=== PATIENT | male | born 1990 | race African-American/Black ===

== ENCOUNTER 2017-09-04 04:57 | Emergency (ER) | payer SELFPAY ==
[~2017-09-04] VITALS: Ht 182.9 cm; Wt 87.7 kg
[2017-09-04 05:01] VITALS: BP 127/71; TEMP 98.7
[2017-09-04] MEDS ORDERED: DOXYCYCLINE 10100 MG PO (05:21)
[2017-09-04 05:41] VITALS: PULSE 75
== END 2017-09-04 05:42 | disposition home or self-care (01) ==
LOC: COL.ER 04:57
DX: N45.1 Epididymitis (principal)

== ENCOUNTER 2017-09-27 08:43 | Emergency (ER) | payer SELFPAY ==
[~2017-09-27] VITALS: Ht 185.4 cm; Wt 87.3 kg
[~2017-09-27 08:43] MED LIST: DOXYCYCLINE 10100 MG PO
[2017-09-27 08:44] VITALS: BP 120/74; PULSE 58; TEMP 98.2
[2017-09-27] MEDS ORDERED: NORCO 325 MG-51 TAB PO (08:47)
== END 2017-09-27 10:16 | disposition home or self-care (01) ==
LOC: COL.ER 08:43
DX: M25.511 Pain in right shoulder (principal); X50.1XXA Overexertion from prolonged static or awkward postures, initial encounter; Y92.009 Unspecified place in unspecified non-institutional (private) residence as the place of occurrence of the external cause

== ENCOUNTER 2017-12-20 09:46 | Emergency (ER) | payer SELFPAY ==
[~2017-12-20] VITALS: Ht 182.9 cm; Wt 85.5 kg
[~2017-12-20 09:46] MED LIST changes: +NORCO 325 MG-51 TAB PO
[2017-12-20 09:56] VITALS: BP 121/72; TEMP 98.6
[2017-12-20 11:02] LABS: BASO % 0.6 % (0.0-2.0); EOS # 0.2 (0.0-0.7); EOS % 4.4 % (0-4.0); GRAN # 1.9 (1.4-6.5); GRAN % 39.9 % (42.2-75.2); HEMATOCRIT 39.8 % (42.0-52.0); HEMOGLOBIN 13.2 g/dl (13.5-18.0); LYMPH # 2.1 (1.2-3.4); MEAN CELL VOLUME 81 fl (80.0-100.0); MEAN CORPUSCULAR HEMOGLOBIN 27 pg (27.0-31.0); MEAN CORPUSCULAR HGB CONC 33 g/dl (33.0-37.0); MEAN PLATELET VOLUME 9.7 fl (7.4-10.4); MONO # 0.6 (0.1-0.6); MONO % 11.9 % (1.7-9.3); PLATELET COUNT 215 K/mm3 (130-400); RED BLOOD COUNT 4.91 M/mm3 (4.20-5.60); REDCELL DISTRIBUTION WIDTH-CV 12.4 % (11.5-14.5)
[2017-12-20 11:12] LABS: ALBUMIN 3.6 gm/dL (3.5-5.0); BILIRUBIN,TOTAL 0.2 mg/dL (0.0-1.0); CALCIUM 8.6 mg/dL (8.4-10.2); POTASSIUM 3.9 mmol/L (3.4-5.0); TOTAL PROTEIN 6.8 gm/dL (6.4-8.2)
[2017-12-20 11:42] LABS: THYROID STIMULATING HORMONE 0.661 uIU/mL (0.465-4.680)
[2017-12-20 12:20] VITALS: PULSE 58
== END 2017-12-20 12:21 | disposition home or self-care (01) ==
LOC: COL.ER 09:46
PROVIDERS: Nurse Practitioner
DX: R55 Syncope and collapse (principal); Z98.890 Other specified postprocedural states

== ENCOUNTER 2017-12-26 05:54 | Emergency (ER) | payer SELFPAY ==
[~2017-12-26] VITALS: Ht 185.4 cm; Wt 84.5 kg
[2017-12-26 05:58] VITALS: TEMP 98.1
[2017-12-26 06:49] LABS: COLLECTION METHOD CLEAN CATCH
[2017-12-26 06:57] LABS: MUCOUS Present /lpf; PH 5 (5-8); SQUAMOUS EPITHELIAL 0-2 /hpf; URINE APPEARANCE Clear; URINE BACTERIA None Seen /hpf; URINE BILIRUBIN Negative (NEGATIVE); URINE BLOOD Negative (NEGATIVE); URINE COLOR Amber; URINE GLUCOSE Negative (NEGATIVE); URINE KETONE Trace (NEGATIVE); URINE LEUKOCYTE ESTERASE Negative (NEGATIVE); URINE NITRATE Negative (NEGATIVE); URINE PROTEIN(semi-quant) Negative (NEGATIVE); URINE RBC 0-2 /hpf
[2017-12-26 07:01] LABS: BASO % 0.4 % (0.0-2.0); EOS # 0.2 (0.0-0.7); EOS % 3.8 % (0-4.0); GRAN # 1.9 (1.4-6.5); GRAN % 40.6 % (42.2-75.2); HEMATOCRIT 47.5 % (42.0-52.0); HEMOGLOBIN 15.7 g/dl (13.5-18.0); LYMPH # 2.2 (1.2-3.4); LYMPH % 46.6 % (20.0-51.0); MEAN CELL VOLUME 82 fl (80.0-100.0); MEAN CORPUSCULAR HEMOGLOBIN 27 pg (27.0-31.0); MEAN CORPUSCULAR HGB CONC 33 g/dl (33.0-37.0); MEAN PLATELET VOLUME 9.4 fl (7.4-10.4); MONO # 0.4 (0.1-0.6); MONO % 8.4 % (1.7-9.3); PLATELET COUNT 256 K/mm3 (130-400); RED BLOOD COUNT 5.81 M/mm3 (4.20-5.60); REDCELL DISTRIBUTION WIDTH-CV 12.5 % (11.5-14.5)
[2017-12-26 07:13] LABS: ALBUMIN 4.2 gm/dL (3.5-5.0); CALCIUM 9.3 mg/dL (8.4-10.2); CREATININE, serum 1.04 mg/dL (0.66-1.25); POTASSIUM 3.7 mmol/L (3.4-5.0)
[2017-12-26] MEDS ORDERED: CEPHALEXIN500 M1 PO (07:34)
[2017-12-26] MEDS ORDERED: ZOFRAN ODT8 MG PO (07:34)
[2017-12-26 08:03] VITALS: BP 126/70; PULSE 60
== END 2017-12-26 08:04 | disposition home or self-care (01) ==
LOC: COL.ER 05:54
PROVIDERS: Emergency Medicine
DX: R11.10 Vomiting, unspecified (principal); R19.7 Diarrhea, unspecified; R10.9 Unspecified abdominal pain
CPT/HCPCS: J2765; J3010; J7030

== ENCOUNTER 2018-03-08 07:06 | Emergency (ER) | payer SELFPAY ==
[~2018-03-08] VITALS: Ht 182.9 cm; Wt 81.8 kg
[~2018-03-08 07:06] MED LIST changes: +CEPHALEXIN500 M1 PO; +ZOFRAN ODT8 MG PO
[2018-03-08 07:10] VITALS: BP 132/84; TEMP 98.2
[2018-03-08 08:18] VITALS: PULSE 67
== END 2018-03-08 08:18 | disposition home or self-care (01) ==
LOC: COL.ER 07:06
DX: S66.912A Strain of unspecified muscle, fascia and tendon at wrist and hand level, left hand, initial encounter (principal); V49.9XXA Car occupant (driver) (passenger) injured in unspecified traffic accident, initial encounter

== ENCOUNTER 2018-03-14 10:19 | Emergency (ER) | payer SELFPAY ==
[~2018-03-14] VITALS: Ht 185.4 cm; Wt 81.8 kg
[2018-03-14 10:23] VITALS: BP 133/64; PULSE 75; TEMP 97.6
[2018-03-14] MEDS ORDERED: FLEXERIL 1010 MG/TAB PO (11:08)
== END 2018-03-14 11:21 | disposition home or self-care (01) ==
LOC: COL.ER 10:19
DX: S29.012A Strain of muscle and tendon of back wall of thorax, initial encounter (principal); X50.0XXA Overexertion from strenuous movement or load, initial encounter

== ENCOUNTER 2018-05-27 11:44 | Emergency (ER) | payer SELFPAY ==
[~2018-05-27] VITALS: Ht 185.4 cm; Wt 77.7 kg
[~2018-05-27 11:44] MED LIST changes: +FLEXERIL 1010 MG/TAB PO
[2018-05-27 12:00] VITALS: BP 132/91; TEMP 97.8
[2018-05-27 12:19] LABS: COLLECTION METHOD CLEAN CATCH
[2018-05-27 12:24] LABS: PH 6 (5-8); SQUAMOUS EPITHELIAL None Seen /hpf; URINE APPEARANCE Clear; URINE BACTERIA None Seen /hpf; URINE BILIRUBIN Negative (NEGATIVE); URINE BLOOD Negative (NEGATIVE); URINE COLOR Yellow; URINE GLUCOSE Negative (NEGATIVE); URINE KETONE Negative (NEGATIVE); URINE LEUKOCYTE ESTERASE Negative (NEGATIVE); URINE NITRATE Negative (NEGATIVE); URINE PROTEIN(semi-quant) Negative (NEGATIVE); URINE RBC 0-2 /hpf; URINE UROBILINOGEN Negative (NEGATIVE)
[2018-05-27] MEDS ORDERED: ZITHROMAX 250M250 MG PO (13:51)
[2018-05-27 14:18] VITALS: PULSE 70
== END 2018-05-27 14:20 | disposition home or self-care (01) ==
LOC: COL.ER 11:44
PROVIDERS: Emergency Medicine
DX: N34.2 Other urethritis (principal)
CPT/HCPCS: J0696

== ENCOUNTER 2018-05-31 14:51 | Emergency (ER) | payer SELFPAY ==
[~2018-05-31] VITALS: Ht 185.4 cm; Wt 81.8 kg
[~2018-05-31 14:51] MED LIST changes: +ZITHROMAX 250M250 MG PO
[2018-05-31 15:44] VITALS: TEMP 98.3
[2018-05-31 15:57] LABS: COLLECTION METHOD CLEAN CATCH
[2018-05-31 16:34] LABS: MUCOUS Present /lpf; PH 6 (5-8); SQUAMOUS EPITHELIAL 0-2 /hpf; URINE APPEARANCE Clear; URINE BACTERIA None Seen /hpf; URINE BILIRUBIN Negative (NEGATIVE); URINE BLOOD Negative (NEGATIVE); URINE COLOR Yellow; URINE GLUCOSE Negative (NEGATIVE); URINE KETONE Negative (NEGATIVE); URINE LEUKOCYTE ESTERASE Negative (NEGATIVE); URINE NITRATE Negative (NEGATIVE); URINE PROTEIN(semi-quant) Negative (NEGATIVE); URINE RBC 0-2 /hpf
[2018-05-31] MEDS ORDERED: FLAGYL500 MG PO (18:10)
[2018-05-31 18:30] VITALS: BP 137/80; PULSE 75
[2018-05-31] MEDS ORDERED: SUPRAX400 MG PO (18:33)
== END 2018-05-31 18:30 | disposition home or self-care (01) ==
LOC: COL.ER 14:51
PROVIDERS: Family Medicine
DX: N34.2 Other urethritis (principal)

== ENCOUNTER 2018-09-21 21:59 | Emergency (ER) | payer SELFPAY ==
[~2018-09-21] VITALS: Ht 185.4 cm; Wt 79.5 kg
[~2018-09-21 21:59] MED LIST changes: +FLAGYL500 MG PO; +SUPRAX400 MG PO
[2018-09-21 22:23] VITALS: BP 143/89; TEMP 99.3
[2018-09-22 01:00] VITALS: PULSE 77
== END 2018-09-22 01:05 | disposition home or self-care (01) ==
LOC: COL.ER 21:59
DX: L80 Vitiligo (principal)

== ENCOUNTER 2019-03-04 02:01 | Emergency (ER) | payer BC ==
[~2019-03-04] VITALS: Ht 185.4 cm; Wt 79.5 kg
[2019-03-04 02:43] LABS: BASO % 0.4 % (0.0-2.0); EOS % 0.3 % (0-4.0); GRAN # 6.5 (1.4-6.5); GRAN % 65.5 % (42.2-75.2); HEMATOCRIT 49.9 % (42.0-52.0); HEMOGLOBIN 16.2 g/dl (13.5-18.0); LYMPH # 1.9 (1.2-3.4); LYMPH % 18.8 % (20.0-51.0); MEAN CELL VOLUME 82 fl (80.0-100.0); MEAN CORPUSCULAR HEMOGLOBIN 27 pg (27.0-31.0); MEAN CORPUSCULAR HGB CONC 33 g/dl (33.0-37.0); MONO # 1.5 (0.1-0.6); MONO % 14.7 % (1.7-9.3); PLATELET COUNT 205 K/mm3 (130-400); RED BLOOD COUNT 6.06 M/mm3 (4.20-5.60); REDCELL DISTRIBUTION WIDTH-CV 12.2 % (11.5-14.5)
[2019-03-04 02:55] LABS: STREP SCREEN NEGATIVE
[2019-03-04 02:56] LABS: ALBUMIN 4.8 gm/dL (3.5-5.0); BILIRUBIN,TOTAL 0.8 mg/dL (0.0-1.0); C-REACTIVE PROTEIN 1.5 mg/dL (0.0-0.9); CALCIUM 9.7 mg/dL (8.4-10.2); CREATININE, serum 1.15 (0.66-1.25); TOTAL PROTEIN 8.8 gm/dL (6.4-8.2)
[2019-03-04 03:13] LABS: ERYTHROCYTE SEDIMENTATION RATE 1 mm/hr (0-15)
[2019-03-04] MEDS ORDERED: FLEXERIL 1010 MG/TAB PO (04:31)
[2019-03-04 04:38] LABS: COLLECTION METHOD CLEAN CATCH
[2019-03-04 04:43] LABS: MUCOUS Present /lpf; PH 5 (5-8); SQUAMOUS EPITHELIAL 0-2 /hpf; URINE APPEARANCE Hazy; URINE BACTERIA None Seen /hpf; URINE BILIRUBIN Negative (NEGATIVE); URINE BLOOD Negative (NEGATIVE); URINE COLOR Yellow; URINE GLUCOSE Negative (NEGATIVE); URINE KETONE 1+ (NEGATIVE); URINE LEUKOCYTE ESTERASE Negative (NEGATIVE); URINE NITRATE Negative (NEGATIVE); URINE PROTEIN(semi-quant) 1+ (NEGATIVE); URINE RBC 0-2 /hpf; URINE UROBILINOGEN Negative (NEGATIVE)
[2019-03-04] MEDS ORDERED: ZOFRAN ODT8 MG PO (04:52)
[2019-03-04 05:09] VITALS: BP 144/80; PULSE 82; TEMP 98.2
== END 2019-03-04 05:09 | disposition home or self-care (01) ==
LOC: COL.ER 02:01
PROVIDERS: Emergency Medicine
DX: M54.5 Low back pain (principal)
CPT/HCPCS: J1885; J2270; J2405

== ENCOUNTER 2020-10-12 14:31 | Emergency (ER) | payer SELFPAY ==
[~2020-10-12] VITALS: Ht 185.4 cm; Wt 88.6 kg
[2020-10-12 14:38] VITALS: BP 128/80; PULSE 67; TEMP 98.2
== END 2020-10-12 16:15 | disposition left against medical advice (07) ==
LOC: COL.ER 14:31
DX: R21 Rash and other nonspecific skin eruption (principal)

== ENCOUNTER 2020-10-23 16:49 | Emergency (ER) | payer SELFPAY ==
[~2020-10-23] VITALS: Ht 185.4 cm; Wt 88.6 kg
[2020-10-23 17:31] VITALS: TEMP 98.9
[2020-10-23] MEDS ORDERED: TRIAMCINOLONE A15 GM TP (17:57)
[2020-10-23 18:02] VITALS: BP 124/78; PULSE 74
== END 2020-10-23 18:02 | disposition home or self-care (01) ==
LOC: COL.ER 16:49
DX: L25.9 Unspecified contact dermatitis, unspecified cause (principal)

== ENCOUNTER 2022-04-21 03:33 | Emergency (ER) | payer OTHER ==
[~2022-04-21] VITALS: Ht 185.4 cm; Wt 98.6 kg
[~2022-04-21 03:33] MED LIST changes: +TRIAMCINOLONE A15 GM TP
[2022-04-21 03:40] VITALS: TEMP 97.6
[2022-04-21 03:56] LABS: STREP SCREEN NEGATIVE
[2022-04-21 05:59] VITALS: BP 144/78; PULSE 76
== END 2022-04-21 05:59 | disposition home or self-care (01) ==
LOC: COL.ER 03:33
PROVIDERS: Emergency Medicine
DX: K12.2 Cellulitis and abscess of mouth (principal); Z28.310 Unvaccinated for COVID-19
CPT/HCPCS: J8540